=== PATIENT | female | born 1990 | race Caucasian/White ===

== ENCOUNTER 2016-09-17 17:52 | Emergency (ER) | payer BC ==
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
[2016-09-17] MEDS ORDERED: DIPH/PERTUSS(ACELL)/TETANUS VAC/PF 0.5 ML SYR (>=10YO) IM ONE (18:35)
[2016-09-17] MEDS ORDERED: OXYCODONE-ACETAMINOPHEN 5-325 MG TABLET PO ONE (18:35)
[2016-09-17] MEDS ORDERED: ONDANSETRON 4 MG TAB.RAPDIS SL ONE (18:36)
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
[2016-09-17] MEDS ORDERED: OXYMETAZOLINE HCL 0.05% NASAL SPRAY 15 ML BOTTLE NASL ONE (20:09)
[2016-09-17 21:21] VITALS: BP 128/80
== END 2016-09-17 21:21 | disposition home or self-care (01) ==
LOC: ER 17:52
DX: S02.2XXB Fracture of nasal bones, initial encounter for open fracture (principal); W22.8XXA Striking against or struck by other objects, initial encounter; Y93.53 Activity, golf; Y92.39 Other specified sports and athletic area as the place of occurrence of the external cause; F17.200 Nicotine dependence, unspecified, uncomplicated; Z23 Encounter for immunization
CPT/HCPCS: 99284; 90471; 70486; 90715; S0119; J3490

== ENCOUNTER 2016-09-30 11:33 | Day surgery (SDC) | payer BC ==
[2016-09-30] MEDS ORDERED: OXYMETAZOLINE HCL 0.05% NASAL SPRAY 15 ML BOTTLE ONE (12:38)
[2016-09-30] MEDS ORDERED: LIDOCAINE 1%/EPINEPHRINE INJ 20 ML VIAL ONE (12:38)
--- NOTE | 2016-09-30 13:33 | OPERATIVE REPORT E ---
Operative Report NAME: JERARDO NG : 1990 AGE: 26Y DATE OF SURGERY: 09/30/2016 ROOM: PREOPERATIVE DIAGNOSIS: NASAL FRACTURE. POSTOPERATIVE DIAGNOSIS: NASAL FRACTURE. OPERATION: Closed reduction with stabilization of nasal fracture. SURGEON: NARINDER JARVIS III, M.D. ANIMAL NUTRITIONIST: None. ANESTHESIA: General. ESTIMATED BLOOD LOSS: Less than 5 mL. FLUIDS: D5 Ringer's lactate. DRAINS: None. CULTURES: None. PROCEDURE: The patient was properly identified and the operative plan discussed with the staff in the operating room and we were all in agreement to proceed. Under adequate general anesthesia by LMA, the patient was prepped and draped in the usual fashion. The nose was anesthetized with Afrin on cotton pledgets and then the vault of the nose internally as well as the external nose was infiltrated with 1:100,000 epinephrine and Xylocaine solution. Four to five minutes was allowed to elapse. Then, there was initially a digital reduction of the fracture shifting the dorsum to the left side from the right. Then Keshawn and Soria forceps were placed intranasally to elevate the nasal bones and manipulate them into anatomic position. Gelfoam pledgets were placed beneath the nasal bones intranasally to support the bones in side the nose. Small Merocel packs were placed in each nasal passage to control bleeding and support the Gelfoam pledgets supporting the nasal bones intranasally. The standard rhinoplasty type dressing was placed using Mastisol and Steri-Strips and then a malleable nasal splint was placed externally and taped into position. The patient appeared to tolerate her procedure well and was returned to the recovery room in satisfactory condition. DICTATING PHYSICIAN: NARINDER JARVIS III M.D. [id number] PHY#: [id number] ID: [id number] JOB#: [id number] ACCT: [id number] cc:NARINDER JARVIS III, M.D. >
[2016-09-30] MEDS ORDERED: OXYCODONE-ACETAMINOPHEN 5-325 MG TABLET ONE (13:56)
[2016-09-30] MEDS ORDERED: FENTANYL CITRATE INJ/PF 100 MCG/2 ML AMPUL ONE (14:18)
[2016-09-30] MEDS ORDERED: MIDAZOLAM 2 MG/2 ML INJ ONE (14:18)
[2016-09-30] MEDS ORDERED: PROPOFOL INJ 200 MG/20 ML VIAL IV ONE (14:18)
== END 2016-09-30 14:28 | disposition home or self-care (01) ==
LOC: SC 11:33
PROVIDERS: ATTEND Otolaryngology
PROC: 0NSBXZZ Reposition Nasal Bone, External Approach (ICD-10-PCS; principal; 2016-09-30 12:15)
DX: S02.2XXG Fracture of nasal bones, subsequent encounter for fracture with delayed healing (principal); X58.XXXD Exposure to other specified factors, subsequent encounter; Z87.891 Personal history of nicotine dependence
CPT/HCPCS: 21320; J2250; J3010; J3490 ×2; J2704; 160